=== PATIENT | female | born 1980 | race Hispanic/Latino ===

== ENCOUNTER → 2024-12-02 | Outpatient (CLI) | payer OTHER ==
--- NOTE | 2024-12-02 11:27 | HMCIMG ---
US ABDOMEN CMP W DOPPLERS INDICATION: EPIGASTRIC PAIN TECHNIQUE: Ultrasound of the abdomen. Doppler evaluation of upper abdominal vessels FINDINGS: Liver: Normal size, shape and echotexture throughout. The liver length is 15.2 cm and appears to have grade 1 hepatic steatosis. Gallbladder: Normal. CBD: 0.4?cm. Portal vein: Patent with normal flow direction. The portal vein velocity is 33 cm/s. Kidneys: Normal size, shape and echogenicity. Right kidney measures 10.7 x 3.8 x 5.6 cm.?cm in length. Left kidney measures 11.1 x 6.5 x 4.2 cm?cm in length Pancreas: Grossly normal. Spleen: Unremarkable and measures 9.1 (3.4) 2.9; cm. Aorta: 1.96 cm. IVC: Unremarkable. There is no free fluid. Suprahepatic veins: Patent - hepatofugal flow. The left hepatic vein measures 54 cm/s. The middle hepatic vein 39 cm/s and right hepatic vein measures 55 cm/s. Splenic vein: Patent - hepatopetal flow. The splenic vein velocity is 34 cm/s. Main, right and left portal veins: Patent - hepatopetal flow. Hepatic artery: Unremarkable. The hepatic artery measures 100 cm/s. The hepatic artery resistive index is 0.78 IMPRESSION: Patent splenic, portal and suprahepatic veins with normal flow direction.
== END | disposition home or self-care (01) ==
LOC: RAH 09:43
PROVIDERS: ATTEND Internal Medicine Gastroenterology
DX: K76.0 Fatty (change of) liver, not elsewhere classified (principal); R10.13 Epigastric pain
CPT/HCPCS: 76700; 93975